=== PATIENT | male | born 1955 | race American Indian/Alaskan Native ===

== ENCOUNTER 2017-05-30 06:41 | Emergency (ER) | payer MEDICARE ==
[2017-05-30] MEDS ORDERED: TYLENOL PO ONE (07:22)
[2017-05-30] MEDS ORDERED: TYLENOL ONE (07:27)
[2017-05-30 07:46] LABS: Basophils % (Auto) 0.9 % (0.0-1.8); Eosinophils % (Auto) 3.7 % (0.0-4.3); Hematocrit 45.1 % (35.5-45.6); Hemoglobin 14.9 gm/dl (11.8-15.2); Mean Corpuscular HGB Conc 33 % (32-34); Mean Corpuscular Hemoglobin 28 pg (28-32); Mean Corpuscular Volume 85 fl (84-94); Platelet Count 197 K/mm3 (140-440); Red Blood Count 5.32 M/mm3 (3.65-5.03); Red Cell Distribution Width 12.7 % (13.2-15.2); White Blood Count 5.6 K/mm3 (4.5-11.0)
--- NOTE | 2017-05-30 07:51 | XRay Report ---
ROUTINE CHEST, TWO VIEWS: HISTORY: chest pain. The trachea, heart, mediastinal contour, lung kimball and bony thorax are unremarkable. IMPRESSION: Unremarkable chest x-ray.
[2017-05-30 08:31] LABS: Anion Gap 21 mmol/L; Blood Urea Nitrogen 14 mg/dL (9-20); Calcium 9.6 mg/dL (8.4-10.2); Carbon Dioxide 20 mmol/L (22-30); Chloride 102.5 mmol/L (98-107); Glucose 152 mg/dL (75-100); Potassium 3.8 mmol/L (3.6-5.0); Sodium 140 mmol/L (137-145)
[2017-05-30] MEDS ORDERED: MUCINEX ER PO ONE (13:04)
[2017-05-30] MEDS ORDERED: TORADOL IM ONE (13:04)
[2017-05-30] MEDS ORDERED: TESSALON PERLES PO ONE (13:05)
--- NOTE | 2017-05-30 15:11 | Emergency Department Report ---
HPI - General Chief Complaint: Chest Pain Time Seen by Provider: 05/30/17 12:35 - HPI HPI: The patient is a 61-year-old male presents for evaluation of cough and chest pain. The patient reports coughing since 11 PM last night, nonproductive, associated with bilateral aching in quality chest pain, 8/10 in severity, exacerbated with coughing, also present since 11 PM last night, 2 hours prior to my evaluation. The patient denies fever, neck pain, parasthesias, hemoptysis , palpitations, dizziness, syncope, unilateral leg swelling, calf muscle pain. Patient also denies receent cocaine or other stimulant use, history of DVT or PE , recent immobilization, or history of cancer. ED Past Medical Hx - Past Medical History Hx Hypertension: Yes Hx GERD: Yes Hx Psychiatric Treatment: Yes Additional medical history: High Cholesterol, Bronchitis - Surgical History Hx Cholecystectomy: Yes - Social History Smoking Status: Never Smoker Substance Use Type: Cocaine - Medications Home Medications: Home Medications Medication Instructions Recorded Confirmed Last Taken Type Azithromycin [Zithromax Z-PACHECO] 250 mg PO QDAY #6 tablet 05/30/17 Unknown Rx Benzonatate [Tessalon Perles] 100 mg PO Q8HR #20 capsule 05/30/17 Unknown Rx Cyclobenzaprine HCl [Flexeril 5 MG 5 mg PO Q8HR PRN #15 tab 05/30/17 Unknown Rx TAB] Flomax mg PO DAILY 05/30/17 Unknown History Lisinopril mg PO DAILY 05/30/17 Unknown History NexIUM 40 mg PO DAILY 05/30/17 05/30/17 Unknown History cloNIDine mg PO TID 05/30/17 Unknown History guaiFENesin [Mucinex] 600 mg PO Q6HR #20 tab.er.12h 05/30/17 Unknown Rx hydrALAZINE mg PO TID 05/30/17 Unknown History ED Review of Systems ROS: Stated complaint: CVHEST PAIN Other details as noted in HPI Constitutional: denies: fever ENT: denies: throat or neck pain Respiratory: reports cough, shortness of breath Cardiovascular: reports chest pain Endocrine: denies unexplained weight loss or gain Gastrointestinal: denies: abdominal pain, nausea Genitourinary: denies: dysuria Musculoskeletal: denies: leg swelling Skin: denies: rash Neurological: denies: headache Hematological/Lymphatic: denies: easy bleeding or easy bruising Psych: denies sadness or hopelessness Physical Exam - Physical Exam Vital Signs: Vital Signs 05/30/17 05/30/17 05/30/17 06:55 10:11 12:02 Temperature 98.3 F 97.9 F 98.1 F Pulse Rate 71 64 61 Respiratory 18 16 18 Rate Blood Pressure 168/107 139/88 Blood Pressure 142/94 [Left] O2 Sat by Pulse 97 99 98 Oximetry Physical Exam: General: well-nourished, well-developed, no acute distress Head: Normocephalic, atraumatic Eyes: normal sclera ENT: Mucous membranes are pink and moist, bilateral nasal congestion present Neck: trachea midline, neck supple, No neck stiffness, no cervical adenopathy Respiratory: Breath sounds equal bilaterally, no wheezing, rales, or rhonchi Cardio: S1 and S2 present, no murmurs, rubs, gallops, capillary refill is brisk Abdomen: Normoactive bowel sounds, soft abdomen, no rigidity, no guarding or rebound tenderness Chest WALL/Back: No tenderness to palpation of the chest wall Musc: No pitting edema Skin: No rash Neuro: no facial drooping, normal speech Psych: Normal affect ED Course Vital Signs 05/30/17 05/30/17 05/30/17 06:55 10:11 12:02 Temperature 98.3 F 97.9 F 98.1 F Pulse Rate 71 64 61 Respiratory 18 16 18 Rate Blood Pressure 168/107 139/88 Blood Pressure 142/94 [Left] O2 Sat by Pulse 97 99 98 Oximetry ED Medical Decision Making - Lab Data Result diagrams: 05/30/17 07:24 05/30/17 07:24 - Medical Decision Making The patient was seen and examined by myself. The patient is placed on a night clerk auditor and continuous pulse ox. On initial evaluation, the patient was found to be in no distress. EKG was negative for findings suggestive of acute cardiac infarct. Labs and imaging are obtained. The patient is given Toradol for his pain, Tessalon for his cough, and Mucinex for his congestion. Chest x- ray is negative for pneumothorax, focal consolidation, pulmonary vascular congestion, pleural effusion, or other obvious acute cardiopulmonary disease process. Lab results were non-concerning including levels of troponin, WBC, hemoglobin, hematocrit, electrolytes, renal function. The patient was reevaluated and reported that their symptoms were markedly improved. As the patient has a KOSTA risk score less than 2, and a well's score less than 2, the patient is at low risk of ACS or pulmonary emboli etiology of their symptoms. The patient is stable for discharge with outpatient follow-up. The patient is given follow-up and return instructions. The patient expressed understanding and agreed with the plan. The patient is discharged in stable condition. Critical care attestation.: If time is entered above; I have spent that time in minutes in the direct care of this critically ill patient, excluding procedure time. ED Disposition Clinical Impression: Upper respiratory infection, acute, Chest pain in adult, Acute viral syndrome Disposition: DC- TO HOME OR SELFCARE Is pt being admited?: No Does the pt Need Aspirin: No Condition: Stable Instructions: Chest Pain (ED), Costochondritis (ED), Upper Respiratory Infection (ED), Viral Syndrome (ED) Referrals: PRIMARY CARE, [Primary Care Provider] - 3-5 Days Time of Disposition: 15:06
[2017-05-30 16:07] VITALS: BP 148/87
== END 2017-05-30 15:35 | disposition home or self-care (01) ==
LOC: ED 06:41
DX: J06.9 Acute upper respiratory infection, unspecified (principal); R07.9 Chest pain, unspecified; B34.9 Viral infection, unspecified; K21.9 Gastro-esophageal reflux disease without esophagitis; E78.00 Pure hypercholesterolemia, unspecified; I10 Essential (primary) hypertension; F14.10 Cocaine abuse, uncomplicated; Z88.5 Allergy status to narcotic agent
CPT/HCPCS: 36415; 71020; 80048; 84484; 85025; 93005; 93010; 96372; 99284; J1885

== ENCOUNTER 2017-09-11 18:24 | Emergency (ER) | payer MEDICARE ==
[2017-09-11 20:31] LABS: Hematocrit 42.2 % (35.5-45.6); Hemoglobin 14.3 gm/dl (11.8-15.2); Mean Corpuscular HGB Conc 34 % (32-34); Mean Corpuscular Hemoglobin 29 pg (28-32); Mean Corpuscular Volume 86 fl (84-94); Platelet Count 170 K/mm3 (140-440); Red Blood Count 4.89 M/mm3 (3.65-5.03); Red Cell Distribution Width 13.1 % (13.2-15.2)
[2017-09-11 20:45] LABS: Alanine Aminotransferase 52 units/L (7-56); Albumin 4.1 g/dL (3.9-5); BUN/Creatinine Ratio 9; Blood Urea Nitrogen 10 mg/dL (9-20); Calcium 9.2 mg/dL (8.4-10.2); Hemolysis Index 12
[2017-09-11 21:07] LABS: Bilirubin,Urine NEG (Negative); Blood,Urine NEG (Negative); Color,Urine Yellow (Yellow); Mucus,Urine FEW /HPF; Nitrite,Urine NEG (Negative); Urobilinogen,Urine < 2.0 mg/dL (<2.0); WBC,Urine < 1.0 /HPF (0.0-6.0)
[2017-09-11 21:11] LABS: Band Neutrophils # (Manual) 0.1 K/mm3; Basophils % (Manual) 0 % (0.0-1.8); Total Cells Counted 100
[2017-09-11 21:13] LABS: RBC Morphology Normal
[2017-09-11] MEDS ORDERED: ATROVENT IH ONE (21:21)
[2017-09-11] MEDS ORDERED: PROVENTIL IH ONE (21:21)
[2017-09-11] MEDS ORDERED: TYLENOL PO ONE (21:24)
[2017-09-11] MEDS ORDERED: TORADOL IV ONE (21:24)
--- NOTE | 2017-09-11 21:30 | Emergency Department Report ---
ED N/V/D HPI - General Chief complaint: Nausea/Vomiting/Diarrhea Stated complaint: N/V Time Seen by Provider: 09/11/17 21:07 Source: EMS Mode of arrival: Ambulatory Limitations: No Limitations - History of Present Illness Initial comments: 61 YO MALE C/O NAUSEA, VOMITING AND ABDOMINAL PAIN. PT IS HERE FROM [place], [place] FOR SUBSTANCE ABUSE PROGRAM. HE VOMITED 8-9 TIMES TODAY AND HIS CHEST AND ABDOMEN ARE SORE BECAUSE OF VOMITING SO MUCH...HE FELT DITZY EARLIER AND HAD BEEN COUGHING SINCE 8AM THIS MORNING. HE IS A SMOKER MD complaint: nausea, vomiting, abdominal pain -: Gradual, hour(s) (few hours ago) Description of Vomiting: food contents Location: LLQ Radiation: none Severity: mild Pain Scale: 0 Quality: aching Consistency: intermittent Improves with: none Worsens with: other (palpation and coughing) Associated Symptoms: chest pain, cough, fever/chills, nausea/vomiting - Related Data Home Medications Medication Instructions Recorded Confirmed Last Taken Flomax mg PO DAILY 05/30/17 Unknown Lisinopril mg PO DAILY 05/30/17 Unknown NexIUM 40 mg PO DAILY 05/30/17 05/30/17 Unknown cloNIDine mg PO TID 05/30/17 Unknown hydrALAZINE mg PO TID 05/30/17 Unknown Previous Rx's Medication Instructions Recorded Last Taken Type Azithromycin [Zithromax Z-PACHECO] 250 mg PO QDAY #6 tablet 05/30/17 Unknown Rx Benzonatate [Tessalon Perles] 100 mg PO Q8HR #20 capsule 05/30/17 Unknown Rx Cyclobenzaprine HCl [Flexeril 5 MG 5 mg PO Q8HR PRN #15 tab 05/30/17 Unknown Rx TAB] guaiFENesin [Mucinex] 600 mg PO Q6HR #20 tab.er.12h 05/30/17 Unknown Rx Allergies Allergy/AdvReac Type Severity Reaction Status Date / Time morphine Allergy Unknown Verified 02/26/16 10:27 albuterol AdvReac Shortness Verified 09/11/17 22:31 of Breath nitroglycerin AdvReac Hives Verified 09/11/17 22:31 ED Review of Systems ROS: Stated complaint: N/V Other details as noted in HPI Constitutional: chills, fever Eyes: denies: eye pain, eye discharge, vision change ENT: denies: ear pain, throat pain Respiratory: denies: cough, shortness of breath, wheezing Cardiovascular: denies: chest pain, palpitations Endocrine: no symptoms reported Gastrointestinal: abdominal pain. denies: diarrhea Genitourinary: denies: urgency, dysuria Musculoskeletal: denies: back pain, joint swelling, arthralgia Skin: denies: rash, lesions Neurological: denies: headache, weakness, paresthesias Psychiatric: denies: anxiety, depression Hematological/Lymphatic: denies: easy bleeding, easy bruising ED Past Medical Hx - Past Medical History Previous Medical History?: Yes Hx Hypertension: Yes Hx CVA: No Hx Heart Attack/AMI: No Hx Congestive Heart Failure: No Hx Diabetes: No Hx Deep Vein Thrombosis: No Hx Pulmonary Embolism: No Hx GERD: Yes Hx Liver Disease: No Hx Renal Disease: No Hx of Cancer: No Hx Sickle Cell Disease: No Hx Arthritis: No Hx Headaches / Migraines: No Hx Seizures: No Hx Kidney Stones: No Hx Psychiatric Treatment: Yes (drug addiction) Hx Asthma: No Hx COPD: No Hx Tuberculosis: No Hx Dementia: No Hx HIV: No Additional medical history: High Cholesterol, Bronchitis - Surgical History Past Surgical History?: Yes Hx Coronary Stent: No Hx Open Heart Surgery: No Hx Pacemaker: No Hx Internal Defibrillator: No Hx Cholecystectomy: Yes Hx Appendectomy: No Hx Breast Surgery: No - Social History Smoking Status: Never Smoker Substance Use Type: None - Medications Home Medications: Home Medications Medication Instructions Recorded Confirmed Last Taken Type Azithromycin [Zithromax Z-PACHECO] 250 mg PO QDAY #6 tablet 05/30/17 Unknown Rx Benzonatate [Tessalon Perles] 100 mg PO Q8HR #20 capsule 05/30/17 Unknown Rx Cyclobenzaprine HCl [Flexeril 5 MG 5 mg PO Q8HR PRN #15 tab 05/30/17 Unknown Rx TAB] Flomax mg PO DAILY 05/30/17 Unknown History Lisinopril mg PO DAILY 05/30/17 Unknown History NexIUM 40 mg PO DAILY 05/30/17 05/30/17 Unknown History cloNIDine mg PO TID 05/30/17 Unknown History guaiFENesin [Mucinex] 600 mg PO Q6HR #20 tab.er.12h 05/30/17 Unknown Rx hydrALAZINE mg PO TID 05/30/17 Unknown History ED Physical Exam - General Limitations: No Limitations General appearance: alert, in no apparent distress - Head Head exam: Present: atraumatic, normocephalic - Eye Eye exam: Present: normal appearance - ENT ENT exam: Present: mucous membranes moist - Neck Neck exam: Present: normal inspection - Respiratory Respiratory exam: Present: wheezes, rhonchi. Absent: respiratory distress - Cardiovascular Cardiovascular Exam: Present: regular rate, normal rhythm. Absent: systolic murmur, diastolic murmur, rubs, gallop - GI/Abdominal GI/Abdominal exam: Present: soft, tenderness (LLQ AND MID ABDOMEN), normal bowel sounds. Absent: rebound, rigid - Rectal Rectal exam: Present: deferred - Extremities Exam Extremities exam: Present: normal inspection, full ROM - Back Exam Back exam: Present: normal inspection, full ROM - Neurological Exam Neurological exam: Present: alert, oriented X3, CN II-XII intact - Psychiatric Psychiatric exam: Present: normal affect, normal mood - Skin Skin exam: Present: warm, dry, intact, normal color. Absent: rash ED Course Vital Signs 09/11/17 09/11/17 09/11/17 18:32 18:46 19:00 Temperature 101.4 F H Pulse Rate 84 81 80 Respiratory 12 11 L 20 Rate Blood Pressure 148/95 148/95 Blood Pressure 148/95 [Right] O2 Sat by Pulse 94 98 95 Oximetry 09/11/17 09/11/17 09/11/17 19:16 19:30 19:46 Temperature Pulse Rate 80 84 91 H Respiratory 20 12 18 Rate Blood Pressure 149/101 149/101 138/103 Blood Pressure [Right] O2 Sat by Pulse 96 98 95 Oximetry 09/11/17 09/11/17 09/11/17 20:00 20:16 20:30 Temperature Pulse Rate 90 173 H Respiratory 18 28 H 14 Rate Blood Pressure 138/103 163/93 163/93 Blood Pressure [Right] O2 Sat by Pulse 97 93 99 Oximetry 09/11/17 09/11/17 09/11/17 20:46 21:00 21:14 Temperature Pulse Rate 79 Respiratory 14 16 18 Rate Blood Pressure 170/86 170/86 Blood Pressure [Right] O2 Sat by Pulse 95 96 98 Oximetry 09/11/17 09/11/17 09/11/17 21:29 21:30 21:38 Temperature Pulse Rate 83 84 Respiratory 21 23 18 Rate Blood Pressure 163/93 159/102 Blood Pressure [Right] O2 Sat by Pulse 94 93 Oximetry 09/11/17 09/11/17 09/11/17 21:57 22:01 22:10 Temperature Pulse Rate 95 H 85 Respiratory 16 10 L Rate Blood Pressure 176/97 176/97 176/97 Blood Pressure [Right] O2 Sat by Pulse 97 97 93 Oximetry 09/11/17 09/11/17 09/11/17 22:14 22:15 22:31 Temperature Pulse Rate 80 94 H Respiratory 18 11 L 24 Rate Blood Pressure 176/97 176/97 Blood Pressure [Right] O2 Sat by Pulse 94 96 Oximetry 09/11/17 09/11/17 09/11/17 22:45 23:01 23:15 Temperature Pulse Rate 83 80 Respiratory 10 L 12 19 Rate Blood Pressure 176/97 176/97 176/97 Blood Pressure [Right] O2 Sat by Pulse 94 95 97 Oximetry 09/12/17 01:40 Temperature Pulse Rate 80 Respiratory 16 Rate Blood Pressure Blood Pressure 170/86 [Right] O2 Sat by Pulse 96 Oximetry ED Medical Decision Making - Lab Data Result diagrams: 09/11/17 20:02 09/11/17 20:02 Critical care attestation.: If time is entered above; I have spent that time in minutes in the direct care of this critically ill patient, excluding procedure time. ED Disposition Clinical Impression: Viral syndrome Nausea & vomiting Qualifiers: Vomiting type: unspecified Vomiting Intractability: non-intractable Qualified Code(s): R11.2 - Nausea with vomiting, unspecified Abdominal pain Qualifiers: Abdominal location: unspecified location Qualified Code(s): R10.9 - Unspecified abdominal pain Disposition: ELOPED Is pt being admited?: No Does the pt Need Aspirin: No Condition: Stable Referrals: HAYDEN SANCHEZ MD [Primary Care Provider] - 3-5 Days Time of Disposition: 04:13
--- NOTE | 2017-09-11 22:28 | XRay Report ---
FINAL REPORT PROCEDURE: XR ABDOMEN 1V AP TECHNIQUE: Abdominal supine AP views. HISTORY: abd pain,n/v COMPARISON: No prior studies are available for comparison. FINDINGS: Bowel gas pattern:Nonobstructive . Masses or calcifications:None . Bony structures:No significant abnormality . Mild degenerative change Pneumoperitoneum:None . Other:Cholecystectomy clips. IMPRESSION: No acute abnormality.
--- NOTE | 2017-09-11 22:29 | XRay Report ---
FINAL REPORT PROCEDURE: XR CHEST ROUTINE 2V TECHNIQUE: PA and lateral chest radiographs were obtained. CPT 51676 HISTORY: cough,fever COMPARISON: No prior studies are available for comparison. FINDINGS: Heart: Normal. Mediastinum/Vessels: Normal. Lungs/Pleural space: Normal. Bony thorax: No acute osseous abnormality. Other: IMPRESSION: Normal examination.
[2017-09-12 03:30] VITALS: BP 170/86
== END 2017-09-12 02:40 | disposition left against medical advice (07) ==
LOC: ED 18:24
DX: B34.9 Viral infection, unspecified (principal); I10 Essential (primary) hypertension; K21.9 Gastro-esophageal reflux disease without esophagitis; E78.00 Pure hypercholesterolemia, unspecified; Z88.6 Allergy status to analgesic agent; Z88.8 Allergy status to other drugs, medicaments and biological substances
CPT/HCPCS: 36415; 71046; 74018; 80053; 81001; 85007; 85025; 87400; 96374; 99284; J1885

== ENCOUNTER 2017-09-13 10:12 | Emergency (ER) | payer MEDICARE ==
[2017-09-13 11:56] VITALS: BP 102/63
[2017-09-13] MEDS ORDERED: ATROVENT IH ONE (15:58)
[2017-09-13] MEDS ORDERED: NACL 0.9% 1000 ML 1,000 ML IV ONE (15:58)
[2017-09-13] MEDS ORDERED: ZOFRAN IV ONE (15:58)
[2017-09-13] MEDS ORDERED: DELTASONE PO ONE ×2 (15:58→17:02)
--- NOTE | 2017-09-13 16:06 | Emergency Department Report ---
ED General Adult HPI - General Chief complaint: Upper Respiratory Infection Stated complaint: FLU Time Seen by Provider: 09/13/17 13:59 Source: patient Mode of arrival: Ambulatory Limitations: No Limitations - History of Present Illness Initial comments: The patient is a 61-year-old -[place] male with history of hypertension who presents to ED for flulike symptoms 1 week patient states cough fever chills nausea vomiting diarrhea generalized weakness near syncopal episode patient denies nausea vomiting at this time no chest pain or shortness of breath last diarrhea episode yesterday last by mouth intake 2 hours ago without nausea vomiting states got faint hot and feverish and fever someone called the ambulance and has got here patient is a and O 3 and laboratory to baseline per patient at this time. Onset/Timin -: week(s) Location: head, abdomen Radiation: back Severity scale (0 -10): 5 Quality: aching Consistency: constant Improves with: none Worsens with: other (activity ) Associated Symptoms: chest pain, cough, fever/chills, headaches, malaise, nausea /vomiting, shortness of breath, weakness Treatments Prior to Arrival: none - Related Data Home Medications Medication Instructions Recorded Confirmed Last Taken Flomax mg PO DAILY 05/30/17 Unknown Lisinopril mg PO DAILY 05/30/17 Unknown NexIUM 40 mg PO DAILY 05/30/17 05/30/17 Unknown cloNIDine mg PO TID 05/30/17 Unknown hydrALAZINE mg PO TID 05/30/17 Unknown Previous Rx's Medication Instructions Recorded Last Taken Type Azithromycin [Zithromax Z-PACHECO] 250 mg PO QDAY #6 tablet 05/30/17 Unknown Rx Benzonatate [Tessalon Perles] 100 mg PO Q8HR #20 capsule 05/30/17 Unknown Rx Cyclobenzaprine HCl [Flexeril 5 MG 5 mg PO Q8HR PRN #15 tab 05/30/17 Unknown Rx TAB] guaiFENesin [Mucinex] 600 mg PO Q6HR #20 tab.er.12h 05/30/17 Unknown Rx Azithromycin [Zithromax Z-PACHECO] 250 mg PO DAILY #6 tab 09/13/17 Unknown Rx Ibuprofen 800 mg PO TID PRN #30 tablet 09/13/17 Unknown Rx Ipratropium (Nf) [Atrovent HFA 2 puff IH Q6HR PRN #1 inha 09/13/17 Unknown Rx 17MCG/PUFF] predniSONE [Deltasone] 40 mg PO QDAY #10 tab 09/13/17 Unknown Rx Allergies Allergy/AdvReac Type Severity Reaction Status Date / Time morphine Allergy Unknown Verified 02/26/16 10:27 albuterol AdvReac Shortness Verified 09/11/17 22:31 of Breath nitroglycerin AdvReac Hives Verified 09/11/17 22:31 ED Review of Systems ROS: Stated complaint: FLU Other details as noted in HPI Constitutional: chills, fever, malaise Eyes: denies: eye pain, eye discharge, vision change ENT: ear pain, throat pain, congestion Respiratory: cough, shortness of breath, wheezing Cardiovascular: chest pain. denies: dyspnea on exertion, paroxysmal nocturnal dyspnea Endocrine: no symptoms reported Gastrointestinal: abdominal pain, nausea, vomiting. denies: diarrhea Genitourinary: denies: urgency, dysuria Musculoskeletal: back pain. denies: joint swelling, arthralgia Skin: denies: rash, lesions Neurological: headache, weakness. denies: numbness, paresthesias, confusion, abnormal gait, vertigo Psychiatric: denies: anxiety, depression Hematological/Lymphatic: denies: easy bleeding, easy bruising ED Past Medical Hx - Past Medical History Hx Hypertension: Yes Hx CVA: No Hx Heart Attack/AMI: No Hx Congestive Heart Failure: No Hx Diabetes: No Hx Deep Vein Thrombosis: No Hx Pulmonary Embolism: No Hx GERD: Yes Hx Liver Disease: No Hx Renal Disease: No Hx Sickle Cell Disease: No Hx Arthritis: No Hx Headaches / Migraines: No Hx Seizures: No Hx Kidney Stones: No Hx Psychiatric Treatment: Yes (drug addiction) Hx Asthma: No Hx COPD: No Hx Tuberculosis: No Hx Dementia: No Hx HIV: No Additional medical history: High Cholesterol, Bronchitis - Surgical History Hx Coronary Stent: No Hx Open Heart Surgery: No Hx Pacemaker: No Hx Internal Defibrillator: No Hx Cholecystectomy: Yes Hx Appendectomy: No Hx Breast Surgery: No - Social History Smoking Status: Never Smoker Substance Use Type: None - Medications Home Medications: Home Medications Medication Instructions Recorded Confirmed Last Taken Type Azithromycin [Zithromax Z-PACHECO] 250 mg PO QDAY #6 tablet 05/30/17 Unknown Rx Benzonatate [Tessalon Perles] 100 mg PO Q8HR #20 capsule 05/30/17 Unknown Rx Cyclobenzaprine HCl [Flexeril 5 MG 5 mg PO Q8HR PRN #15 tab 05/30/17 Unknown Rx TAB] Flomax mg PO DAILY 05/30/17 Unknown History Lisinopril mg PO DAILY 05/30/17 Unknown History NexIUM 40 mg PO DAILY 05/30/17 05/30/17 Unknown History cloNIDine mg PO TID 05/30/17 Unknown History guaiFENesin [Mucinex] 600 mg PO Q6HR #20 tab.er.12h 05/30/17 Unknown Rx hydrALAZINE mg PO TID 05/30/17 Unknown History Azithromycin [Zithromax Z-PACHECO] 250 mg PO DAILY #6 tab 09/13/17 Unknown Rx Ibuprofen 800 mg PO TID PRN #30 tablet 09/13/17 Unknown Rx Ipratropium (Nf) [Atrovent HFA 2 puff IH Q6HR PRN #1 inha 09/13/17 Unknown Rx 17MCG/PUFF] predniSONE [Deltasone] 40 mg PO QDAY #10 tab 09/13/17 Unknown Rx ED Physical Exam - General Limitations: No Limitations General appearance: alert, in no apparent distress, other (patient appears ill well-nourished well hydrated) - Head Head exam: Present: atraumatic, normocephalic, normal inspection - Eye Eye exam: Present: normal appearance, PERRL, EOMI Pupils: Present: normal accommodation - ENT ENT exam: Present: mucous membranes moist - Expanded ENT Exam Expanded TM/Canal exam: Erythema: Right TM, Left TM, Canal Tenderness: Right TM, Left TM Mouth exam: Absent: trismus Throat exam: Positive: tonsillar erythema, tonsillomegaly. Negative: tonsillar exudate, R peritonsillar mass, L peritonsillar mass - Neck Neck exam: Present: normal inspection, full ROM. Absent: lymphadenopathy, thyromegaly - Respiratory Respiratory exam: Present: normal lung sounds bilaterally, wheezes, chest wall tenderness. Absent: respiratory distress, rales, rhonchi, stridor - Cardiovascular Cardiovascular Exam: Present: regular rate, normal rhythm, normal heart sounds. Absent: systolic murmur, diastolic murmur, rubs, gallop - GI/Abdominal GI/Abdominal exam: Present: soft, normal bowel sounds. Absent: distended, tenderness, guarding, rebound, rigid, mass, bruit, pulsatile mass, hernia - Rectal Rectal exam: Present: deferred - Extremities Exam Extremities exam: Present: normal inspection, full ROM. Absent: tenderness - Back Exam Back exam: Present: normal inspection, full ROM, tenderness. Absent: CVA tenderness (R), CVA tenderness (L), muscle spasm, paraspinal tenderness, vertebral tenderness, rash noted - Neurological Exam Neurological exam: Present: alert, oriented X3, CN II-XII intact, normal gait, reflexes normal - Psychiatric Psychiatric exam: Present: normal affect, normal mood - Skin Skin exam: Present: warm (site does a result), dry, intact, normal color. Absent: rash ED Course Vital Signs 09/13/17 11:48 Temperature 99.1 F Pulse Rate 72 Respiratory 20 Rate Blood Pressure 102/63 O2 Sat by Pulse 98 Oximetry ED Medical Decision Making - EKG Data EKG shows normal: sinus rhythm Rate: normal - EKG Data Interpretation: no acute changes, normal EKG - Radiology Data Radiology results: report reviewed, image reviewed normal chest xray no infiltrates no opacities - Medical Decision Making The patient is a 61-year-old -[place]iquais male with history of hypertension who presents to ED for flulike symptoms 1 week patient states cough fever chills nausea vomiting diarrhea generalized weakness near syncopal episode patient denies nausea vomiting at this time no chest pain or shortness of breath last diarrhea episode yesterday last by mouth intake 2 hours ago without nausea vomiting states got faint hot and feverish and fever someone called the ambulance and has got here patient is a and O 3 and laboratory to baseline per patient at this time. Labs noted from last night CMP normal CBC normal UA yudi chest x-ray normal troponin is negative [place] heart score is 1 for hypertension and one for history total 2 points low risk, as this is not likely ACS syndrome , patient denies shortness of breath at this time ,chest x- ray no opacities or infiltrates flu swab negative, EKG normal sinus rhythm no incidental symptoms likely URI versus influenza versus bronchitis with mild dehydration with nausea vomiting plan hydration Zofran by mouth challenge and ventilation challenge systems improve we'll DC to self in stable condition after reassessment Reassessment: pt breathing improved, lungs improved pt ambulatory from parking lot back to room without increase in sob or wheezing pt refuses repeat troponin today , plan: will d/c to self with rx for albuterol, prednisone, ibuprofen, and cheratussin pt given strict instructions to return to emergency if symptoms worsen. Critical care attestation.: If time is entered above; I have spent that time in minutes in the direct care of this critically ill patient, excluding procedure time. ED Disposition Clinical Impression: Bronchitis, Dehydration, mild Disposition: DC-01 TO HOME OR SELFCARE Is pt being admited?: No Does the pt Need Aspirin: No Condition: Good Instructions: Chronic Bronchitis (ED) Prescriptions: Azithromycin [Zithromax Z-PACHECO] 250 mg PO DAILY #6 tab Ibuprofen 800 mg PO TID PRN #30 tablet PRN Reason: pain fever Ipratropium (Nf) [Atrovent HFA 17MCG/PUFF] 2 puff IH Q6HR PRN #1 inha PRN Reason: shortness of breath predniSONE [Deltasone] 40 mg PO QDAY #10 tab Referrals: HAYDEN SANCHEZ MD [Primary Care Provider] - 3-5 Days Forms: Work/School Release Form(ED) Time of Disposition: 17:58
== END 2017-09-13 18:30 | disposition home or self-care (01) ==
LOC: ED 10:12
DX: J40 Bronchitis, not specified as acute or chronic (principal); E86.0 Dehydration; I10 Essential (primary) hypertension; K21.9 Gastro-esophageal reflux disease without esophagitis; E78.5 Hyperlipidemia, unspecified; Z88.6 Allergy status to analgesic agent; Z88.8 Allergy status to other drugs, medicaments and biological substances
CPT/HCPCS: 93005; 93010; 96361; 96374; 99283; J2405; J7030; J7512